=== PATIENT | male | born 1955 | race Caucasian/White ===

== ENCOUNTER → 2017-03-25 | Outpatient (CLI) | payer OTHER | END | disposition home or self-care (01) | LOC: RADUSWWP 14:07 | PROVIDERS: ATTEND Family Medicine | DX: I73.9 Peripheral vascular disease, unspecified (principal) | CPT/HCPCS: 93923 ==

== ENCOUNTER → 2018-05-26 | Outpatient (CLI) | payer OTHER ==
--- NOTE | 2018-05-26 14:00 | CTL ---
EXAMINATION TYPE: CT Low Dose Lung DATE OF EXAM ORDERED: 05/26/2018 HISTORY: . Lung cancer screening CT DLP: [address] CTDI: 1.76 mGy Automated exposure control for dose reduction was used. SCREENING VISIT: Subsequent COMPARISON: 05/06/2017 TECHNIQUE: Low dose computed tomography scan was performed through the chest at 1 mm thick sections a nd reconstructed images in the coronal plane at [address] DIAGNOSTIC QUALITY: Limited, but interpretable FINDINGS: LUNG NODULES: Present, detailed below: There is right apical thickening present previously and appears stable. Some irregular posterior lateral right apical pleural thickening is present. This was present previou sly and appears stable. LUNGS: COPD: Severity: Mild Fibrosis: Severity: None Lymph nodes: None Other findings: None RIGHT PLEURAL SPACE: Effusion: None Calcification: None Thickening: Mild Pneumothorax: None LEFT PLEURAL SPACE: Effusion: None Calcification: None Thickening: None Pneumothorax: None HEART: Heart Size: Normal Coronary calcification: Moderate Pericardial effusion: None OTHER FINDINGS: Upper abdomen: Unremarkable Bony thorax: Normal Supraclavicular region: Normal Other: Ascending thoracic aorta at the level the main pulmonary artery is 4.0 cm. The main pulmonary artery the bifurcation is 2.4 cm. IMPRESSION: Examination stable from prior study. Some mild right pleural thickening and right apical scarring is stable. FOLLOW UP CT CHEST RECOMMENDATION: Follow-up low-dose CT [address] LUNG RAD: Lung rad 2
== END | disposition home or self-care (01) ==
LOC: RADCTMAIN 12:48
PROVIDERS: ATTEND Family Medicine
DX: J92.9 Pleural plaque without asbestos (principal); J98.4 Other disorders of lung; Z87.891 Personal history of nicotine dependence

== ENCOUNTER → 2019-09-06 | Outpatient (CLI) | payer OTHER ==
--- NOTE | 2019-09-06 12:11 | CTL ---
EXAMINATION TYPE: CT Low Dose Lung DATE OF EXAM ORDERED: 09/06/2019 HISTORY: Personal history of tobacco abuse. Lung cancer screening CT DLP: [address] CTDI: 1.64 mGy Automated exposure control for dose reduction was used. SCREENING VISIT: Subsequent COMPARISON: 05/25/2018 and 05/06/2017 TECHNIQUE: Low dose computed tomography scan was performed through the chest at 1 mm thick sections a nd reconstructed images in the coronal plane at [address] DIAGNOSTIC QUALITY: Limited, but interpretable FINDINGS: LUNG NODULES: Present, detailed below: The previously seen irregular thickened right posterior lateral apical pleural thickening measures up to 1.0 cm in thickness on series 4 image 31 and is stable from the prior of 05/26/2018. Nodular apic al pleural thickening is also stable from the prior. 3 x 3 mm superior segment right lower lobe solid pulmonary nodules marked on series 5 image 134 and a ppears new from the prior. LUNGS: COPD: Severity: Mild to moderate Fibrosis: Severity: Mild biapical scarring Lymph nodes: No suspicious adenopathy Other findings: New atelectasis near the lateral right costophrenic angle. There is a lingular atelec tasis also seen is subsegmental. RIGHT PLEURAL SPACE: Effusion: None Calcification: None Thickening: None Pneumothorax: None LEFT PLEURAL SPACE: Effusion: None Calcification: None Thickening: None Pneumothorax: None HEART: Heart Size: Nonenlarged Coronary calcification: Left anterior descending coronary artery stent versus moderate calcifications . Mild calcifications of the circumflex coronary. Pericardial effusion: None OTHER FINDINGS: Upper abdomen: Gallbladder is surgically absent. Bony thorax: Mild multilevel degenerative change of the thoracic spine. Other: Stable upper limits of normal size of the ascending thoracic aorta measuring 4.0 cm. IMPRESSION: Solitary new 3 x 3 mm superior segment right lower lobe pulmonary nodule. Findings remain LUNG RADS 2 for which annual surveillance with low-dose CT is recommended. FOLLOW UP CT CHEST RECOMMENDATION: Follow-up low-dose CT [address] LUNG RAD: 2
== END | disposition home or self-care (01) ==
LOC: RADCTMAIN 11:05
PROVIDERS: ATTEND Internal Medicine Critical Care Medicine
DX: Z12.2 Encounter for screening for malignant neoplasm of respiratory organs (principal); R91.1 Solitary pulmonary nodule; F17.210 Nicotine dependence, cigarettes, uncomplicated

== ENCOUNTER → 2020-08-23 | Outpatient (CLI) | payer OTHER ==
--- NOTE | 2020-08-23 10:14 | MR ---
EXAMINATION TYPE: MR lumbar spine wo con DATE OF EXAM: 08/23/2020 COMPARISON: NONE HISTORY: Lower back pain into left leg down into left foot x 2 months TECHNIQUE: T1 and T2 axial and sagittal images of the lumbar spine are submitted. FINDINGS: There is no abnormal signal seen within the visualized spinal cord or paraspinal soft tissu es. At T12-L1 there is degenerative disc disease and hypertrophic spurring with mild central disc bulging but no focal herniation or canal stenosis. Neural foramina patent. Mild hypertrophic change of the f acets. At L1-2 there is disc space narrowing and degenerative disc disease with hypertrophic change of the f acets. Mild circumferential disc bulging with no canal stenosis, focal herniation or foraminal encroa chment. At L2-3 there is moderate degenerative disc disease with broad-based central disc bulging and more ad vanced hypertrophy ligamentum flavum and facet joints. There is a mild effacement of thecal sac and m ild bilateral foraminal encroachment with borderline central stenosis. At L3-4 there is moderate degenerative disc disease with more advanced facet arthropathy and hypertro phic change and ligamentum flavum. Mild broad-based disc bulging and effacement of thecal sac. Mild b ilateral foraminal encroachment. Borderline central stenosis. At L4-5 there is degenerative disc disease with mild circumferential disc bulging. Facet arthropathy and ligamentum flavum hypertrophy noted mild right foraminal and moderate left foraminal encroachment . At L5-S1 there is severe degenerative disc disease with grade 1 anterolisthesis and advanced facet ar thropathy. Findings suspicious for bilateral spondylolysis. Moderate to severe bilateral foraminal en croachment. No Canal stenosis. Mild broad-based disc bulging greater paracentrally to the right. There are heterogeneous marrow changes which are nonspecific. IMPRESSION: 1. Multilevel degenerative disc disease and hypertrophic facet arthropathy. Grade 1 anterolisthesis L 5 on S1 with moderate to severe bilateral foraminal encroachment. Bilateral spondylolysis suspected. 2. Multilevel disc bulging and hypertrophic changes with borderline central stenosis L2-3 and L3-4.
== END | disposition home or self-care (01) ==
LOC: RADMRIMAIN 08:22
PROVIDERS: ATTEND Family Medicine
DX: M48.061 Spinal stenosis, lumbar region without neurogenic claudication (principal); M51.16 Intervertebral disc disorders with radiculopathy, lumbar region; M43.17 Spondylolisthesis, lumbosacral region; M47.26 Other spondylosis with radiculopathy, lumbar region; M89.38 Hypertrophy of bone, other site
CPT/HCPCS: 72148

== ENCOUNTER → 2020-09-17 | Outpatient (CLI) | payer OTHER ==
[2020-09-17 08:29] VITALS: BP 131/76; PULSE 70; RESP 16; TEMP 97.7
--- NOTE | 2020-09-17 09:13 | P.HPIM ---
History of Present Illness H&P Date: 09/17/20 Chief Complaint: Lumbar back pain and pain radiating to left lower extremity Mr. Jain is a 65-year-old pleasant male came to the [facility] pain clinic for initial consultation for his lumbar back pain, and radiating to left lower extremity. Patient describes his pain is aching, throbbing, burning, and tingling sensation. His pain radiating to left lower extremity. He is using cane for walking support. He is working in a [employer] 10 hours a day 5-6 days a week. Patient rated pain 5-6 out of 10 in severity. Which may very her pain level from 5-9 out of 10 in severity. Pain increases with activities, and standing, walking, sitting, bending forward, and lifting. Pain decreases with no medications helping incomplete decreasing his pain Overall patient activities decreased secondary to pain. Pain medications helping to some extent. Because of the pain patient is feeling lack of sleep and interest and energy. Denied any bowel or bladder problems. Patient denies any adverse effects to medications. He is using cane as a walking aids for walking. Complaining depression secondary to pain but denied any [suicidal/homicidal tendency at this time. He is sleeping well with the help of pain medications. But denied any difficulty waking up from the sleep . There are no signs of narcotic diversion/misuse/overuse and no new-onset weakness, bowel/bladder incontinence, saddle anesthesia, or no red flag symptoms. Review of Systems All systems: negative Constitutional: Denies chills, Denies fever Eyes: denies blurred vision, denies pain Ears, nose, mouth and throat: Denies headache, Denies sore throat Cardiovascular: Denies chest pain, Denies shortness of breath Respiratory: Denies cough Gastrointestinal: Denies abdominal pain, Denies diarrhea, Denies nausea, Denies vomiting Musculoskeletal: Denies myalgias Musculoskeletal: left: as per HPI (Numbness, and tingling sensation) Integumentary: Denies pruritus, Denies rash Neurological: Denies numbness, Denies weakness Psychiatric: Denies anxiety, Denies depression Endocrine: Denies fatigue, Denies weight change Past Medical History Past Medical History: Coronary Artery Disease (CAD), COPD, Hyperlipidemia, Myocardial Infarction (PA), Osteoarthritis (OA) Additional Past Medical History / Comment(s): crohns, ulcertive colitis, chronic pancreatitis Last Myocardial Infarction Date:: 2016 History of Any Multi-Drug Resistant Organisms: None Reported Past Surgical History: Appendectomy, Cholecystectomy, Heart Catheterization With Stent, Joint Replacement, Orthopedic Surgery Additional Past Surgical History / Comment(s): one heart stent, left knee replacement, left knee sx on muscles, rt wrist X@ Past Anesthesia/Blood Transfusion Reactions: Previous Problems w/ Anesthesia Additional Past Anesthesia/Blood Transfusion Reaction / Comment(s): states had issue with anesthesia at dentist, and had to go to emergency room r/t trouble waking up Date of Last Stent Placement:: 2016 Smoking Status: Current every day smoker Medications and Allergies Home Medications Medication Instructions Recorded Confirmed Type Adalimumab [Humira] 40 mg 09/17/20 History Albuterol Sulfate [Proair Hfa] 8.5 mg DAILY 09/17/20 09/17/20 History Aspirin [Adult Low Dose Aspirin EC] 81 mg PO DAILY 09/17/20 09/17/20 History Atorvastatin [Lipitor] 40 mg PO DAILY 09/17/20 09/17/20 History Budesonide/Formoterol Fumarate 4.5 gm DAILY 09/17/20 09/17/20 History [Symbicort 80-4.5 Mcg Inhaler] Ergocalciferol (Vitamin D2) 50 mcg PO DAILY 09/17/20 09/17/20 History [Vitamin D2 (2000 Iu)] Gabapentin 600 mg PO TID 09/17/20 09/17/20 History HYDROcodone/APAP 10-325MG [Lorton 10 - 325 mg PO DAILY 09/17/20 09/17/20 History 10-325] Magnesium Oxide 400 mg PO DAILY #30 tablet 09/17/20 Rx Tamsulosin HCl [Flomax] 0.4 mg PO DAILY 09/17/20 09/17/20 History traMADol HCL [Ultram] 50 mg PO DAILY 09/17/20 09/17/20 History Allergies Allergy/AdvReac Type Severity Reaction Status Date / Time Sulfa (Sulfonamide Allergy Rash/Hives Verified 09/13/20 11:05 Antibiotics) Physical Exam - Constitutional General appearance: no acute distress - EENT Eyes: EOMI - Neck Neck: no lymphadenopathy - Gastrointestinal General gastrointestinal: organomegaly, soft, tenderness - Musculoskeletal Musculoskeletal: left sided weakness ( lumbar spine examination:) - Psychiatric Psychiatric: A&O x's 3, appropriate affect, intact judgment & insight Upper extremity: normal strength and range of motion. Lower extremity: Normal strength but decreased range of motion on left lower extremity secondary to pain. Lumbar paravertebral tenderness: Positive. Lumbar facet loading test: Positive. Straight leg raising TEST: Positive on left side. Provocative SI Joint Tests : Distraction test: Positive on left side Thigh thrust test: Positive on left side. Compression test: Positive on left side AMANDO/Wilder test: Positive on left side Results Results: MRI of the lumbar spine done on 08/23/2020 -reviewed and discussed with the patient Assessment and Plan Assessment: #1 lumbar spondylosis without myelopathy #2 lumbar spondylolisthesis L5 on S1 #3 lumbar [id number] #4 left side sacroiliac joint dysfunction #5 myofascial pain syndrome #6 peripheral vascular disease Plan: 1. Diagnoses, prognoses, and multiple treatment options including but not limited to physical therapy, interventional therapies, adjunct medical therapies, and surgical options were discussed with the patient and all questions were answered to the patients satisfaction. 2. Treatment plan agreement: Patient was discussed regarding the medication side effects, and complications associated medications. 3. The patient was counseled on importance of regular exercise in controlling chronic pain as well as in terms of overall well-being. Patient counseled regarding the importance of regular exercise, and minimizing the intake of carbohydrates, and process foods which may help in decreasing the inflammation, and helps overall well-being. Patient counseled regarding smoking association with chronic pain, worsening inflammation, effects of smoking on liver and medication metabolism. Patient encouraged to stop smoking, patient was given information regarding smoking cessation program. 4. Consultations: Continue physical therapy exercises at home 5. Investigations: MAPS- appropriate , and urine drug test- not done. 6. Diagnostic studies: None. 7. Interventional procedures: L5-S1 epidural steroid injection #1, and left glu teal trigger point injections. 8. Medications: #1 magnesium oxide 400 mg by mouth daily dispense #30. 9. Morphine milligram equivalent (MME) doses: 10 0 from the pain clinic. 10. Durable Medical Equipment (DME) : TENS units. 11. Disposition: Scheduled for follow-up in 4 weeks duration. I have spent greater than 30 minutes with this patient. Including but not limited to: [id number] time, on physical examination, electronic medical record review, counseling, and documentation.
== END ==
LOC: PNWHC3 07:48
DX: M47.26 Other spondylosis with radiculopathy, lumbar region (principal); M43.17 Spondylolisthesis, lumbosacral region; I25.10 Atherosclerotic heart disease of native coronary artery without angina pectoris; J44.9 Chronic obstructive pulmonary disease, unspecified; E78.5 Hyperlipidemia, unspecified; I25.2 Old myocardial infarction; M19.90 Unspecified osteoarthritis, unspecified site; F17.200 Nicotine dependence, unspecified, uncomplicated; M79.18 Myalgia, other site; I73.9 Peripheral vascular disease, unspecified; M53.3 Sacrococcygeal disorders, not elsewhere classified
CPT/HCPCS: 99211

== ENCOUNTER → 2020-09-24 | Outpatient (CLI) | payer OTHER ==
--- NOTE | 2020-09-24 22:33 | CTL ---
EXAMINATION TYPE: CT Low Dose Lung DATE OF EXAM ORDERED: 09/24/2020 HISTORY: Long-term tobacco use. Lung cancer screening CT DLP: [address] CTDI: 1.65 mGy Automated exposure control for dose reduction was used. SCREENING VISIT: Third study after baseline COMPARISON: Prior studies September 06, 2019 and older studies May 26, 2018 and May 06, 2017 TECHNIQUE: Low dose computed tomography scan was performed through the chest at 1 mm thick sections a nd reconstructed images in the coronal plane at [address] DIAGNOSTIC QUALITY: Limited, but interpretable FINDINGS: LUNG NODULES: Present, detailed below: Stable small scattered calcified nodules are granulomas reference largest measures 3 to 4 mm axial im age 33 anteriorly left upper lobe. No new greater than 4 mm noncalcified pulmonary nodules. Prior visualized 3 mm superior right lower l obe nodule medially is not clearly seen on today's study LUNGS: COPD: Severity: Mild to Moderate Fibrosis: Severity: Mild To moderate biapical Lymph nodes: No greater than 1 cm noncalcified Other findings: Ascending aorta measures up to 3.9 cm in size. RIGHT PLEURAL SPACE: Effusion: None Calcification: None Thickening: None Pneumothorax: None LEFT PLEURAL SPACE: Effusion: None Calcification: None Thickening: None Pneumothorax: None HEART: Heart Size: Normal Coronary calcification: Probable stent proximal LAD correlate clinically. Pericardial effusion: None. OTHER FINDINGS: Upper abdomen: Cholecystectomy clips redemonstrated. Bony thorax: Mild to moderate multilevel spurring. Supraclavicular region: None. Other: None. IMPRESSION: No new or enlarging nodules. CT LUNG RAD AND CT CHEST RECOMMENDATION: Lung-Rad 2 Benign Appearance or Behavior: Continue annual sc reening with LDCT in 12 months. S Modifier (other clinically significant findings): None
== END | disposition home or self-care (01) ==
LOC: RADCTMAIN 16:12 → EEVIPCON 16:20
PROVIDERS: ATTEND Internal Medicine Critical Care Medicine
DX: Z12.2 Encounter for screening for malignant neoplasm of respiratory organs (principal); F17.210 Nicotine dependence, cigarettes, uncomplicated
CPT/HCPCS: 71271

== ENCOUNTER 2020-09-25 13:20 | Day surgery (SDC) | payer OTHER ==
[2020-09-21 15:59] VITALS: BMI 21.5
[~2020-09-25 13:20] MED LIST: LACTATED RINGERS 1,000 ML IV SCH
[2020-09-25 13:45] VITALS: RESP 16; TEMP 98.9
[2020-09-25] MEDS ORDERED: MIDAZOLAM 2 MG/2 ML VIAL ONE (13:45)
[2020-09-25] MEDS ORDERED: ROPIVACAINE 5MG/ML 20ML VIAL ONE (13:45)
[2020-09-25] MEDS ORDERED: IOPAMIDOL M200 10 ML VIAL ONE (13:45)
[2020-09-25] MEDS ORDERED: methylPREDNISolone ACETATE 40 MG/ML 1 ML VIAL ONE (13:45)
[2020-09-25] MEDS ORDERED: fentaNYL (PF) 50 MCG/ML 2 ML AMP ONE (13:45)
[2020-09-25] MEDS ORDERED: IV FLUID CONTINUATION 1,000 ML IV ONE ×2 (14:09)
[2020-09-25 14:31] VITALS: BP 109/70; PULSE 57
--- NOTE | 2020-09-25 15:53 | FL ---
EXAMINATION TYPE: FL guided pain mgmt statistic DATE OF EXAM: 09/25/2020 CLINICAL HISTORY: Low back pain. TECHNIQUE: Fluoroscopy. COMPARISON: None. FINDINGS: Fluoroscopic guidance was provided during pain relief procedure performed by Dr. Kam . A total of 7 seconds of fluoroscopic time was utilized during the procedure and 1 spot intraoperat sukhdeep image is acquired. Single image acquired shows needle localization at lower lumbar spine. IMPRESSION: As Above.
== END 2020-09-25 14:41 | disposition home or self-care (01) ==
LOC: ORPAIN 13:20
PROVIDERS: ATTEND Specialist
DX: M47.26 Other spondylosis with radiculopathy, lumbar region (principal); M79.18 Myalgia, other site; M51.16 Intervertebral disc disorders with radiculopathy, lumbar region; Z88.2 Allergy status to sulfonamides; Z79.82 Long term (current) use of aspirin
CPT/HCPCS: 20552; 62323; J2250; J1030; J3010; Q9966; J2795; 99152

== ENCOUNTER → 2020-10-01 | Outpatient (CLI) | payer OTHER ==
--- NOTE | 2020-09-25 14:07 | P.PCN ---
Date of Procedure: 09/25/20 Procedure(s) Performed: PREOPERATIVE DIAGNOSIS: 1- Lumbar radiculopathy. 2-Lumbar spondylosis with Facet arthropathy without myelopathy. 3-myofascial pain syndrome left gluteal area. POSTOPERATIVE DIAGNOSIS: Same as preop diagnosis. PROCEDURE 1. Lumbar epidural steroid injection under fluoroscopic guidance at the L5-S1 level. (Fluoroscopy imaging was available in radiology department) 2. Lumbar epidurogram. 3. Trigger points injection left gluteal muscles .( 2 points ) ANESTHESIA: Local with 1% lidocaine 3 ml and , moderate sedation with intravenous Versed 2 mg ,and fentanyle 50 Mcg EBL: Minimal PROCEDURE INDICATION: The patient with low back pain and radiculitis symptoms unresponsive to conservative treatment. Fluoroscopy was used to optimize visualization of the needle placement and to maximize safety. PROCEDURE DESCRIPTION / TECHNIQUE: The patient was seen and identified in the preoperative area. Risks, benefits, complications including but not limited to infections ,bleeding ,allergic reaction to the medications ,nerve damage and not complete pain releife , and alternatives were discussed with the patient. The patient agreed to proceed with the procedure and signed the consent. IV was started, and vital signs were stable. Patient was taken to the OR and time out was completed. The patient was placed in the prone position on procedure table and a pillow was placed under the abdomen to reduce lumbar lordosis. The lumbosacral area was prepped and draped in the usual sterile fashion.ere closely monitored during the procedure. Conscious sedation was used during the procedure to decrease patients anxiety. Vital signs was monitered during the entire procedure. Using anterior-posterior fluoroscopy, the L5-S1 interlaminar space was identified and the skin over this site was marked and then infiltrated with 1% lidocaine subcutaneously. Subsequently, a 20-gauge Tuohy epidural needle was inserted and advanced toward the epidural space using the ``Loss of resistance technique and guided by AP and lateral fluoroscopy. The correct needle position in the epidural space was verified with the injection of 2 mL of the water soluble contrast dye Isovue 200 contrast and observing an excellent epidurogram with the epidural spread of the dye, after negative aspiration for blood and CSF and in the absence of paresthesias. Again after negative aspiration, a 6 ml mixture containing 80 mg of Depo-medrol , and 2 ml of preservative free Normal Saline, and 2 ml of preservative free lidocaine 1% solution was injected and a washout of epidurogram was seen. Needle was withdrawn intact, skin was cleansed. Trigger point injection done under sterile technique, 2 trigger point identified in the left gluteal muscles, each one of them injected with Ropivacaine 0.5% 3 ml , using 25-gauge needle injection done after negative aspiration and there was no paresthesia during the injections, patient tolerated the procedure well without any complications COMPLICATIONS: None DISPOSITION / PLANS: The patient was placed in a supine position and transferred to the recovery area in a stable condition for observation. There was no evidence of lower extremity motor or sensory deficit after the procedure. Patient was discharged from the recovery room after meeting discharge criteria. Home discharge instructions were given to the patient by the staff. The patient was reexamined prior to discharge. The patient will schedule a follow up in the clinic in 2-4 weeks.
--- NOTE | 2020-10-02 08:55 | CT ---
EXAMINATION TYPE: CT lumbar spine wo con DATE OF EXAM: 10/01/2020 COMPARISON: None HISTORY: Low back pain CT DLP: 462.5 mGycm CONTRAST: None TECHNIQUE: CT of the lumbar spine is performed on a spiral scan at 3 mm thick sections. Reconstructed images are performed in the coronal and sagittal planes. FINDINGS: Spondylolysis of L5 is present. There is a grade 1 spondylolisthesis of L5 anteriorly on S1 . Disc phenomenon is present L5-S1. T12-L1: No focal disc herniation or significant disc bulge is evident. No spinal canal stenosis or neural foraminal stenosis is present. L1-L2: No focal disc herniation or significant disc bulge is evident. No spinal canal stenosis or n eural foraminal stenosis is present L2-L3: Disc space narrowing is present. Mild disc bulges anterior thecal sac flattening. No AP spinal canal stenosis is present. Mild foraminal narrowing is present greater on the right. L3-L4: Broad-based disc bulge is present with anterior thecal sac flattening. No AP spinal canal sten osis is present. Neural foramen are patent. L4-L5: Broad-based disc bulge is mild anterior thecal sac flattening. No spinal canal stenosis presen t. Moderate bilateral foraminal narrowing greater on the left is present. L5-S1: Disc uncovering is present with mild anterior thecal sac compression. No AP spinal canal steno sis present. Severe bilateral foraminal narrowing appears to be present. IMPRESSION: 1. Severe foraminal narrowing L5-S1 bilaterally secondary to disc bulging into the foramen. 2. Some milder foraminal narrowing is present L2-3 L4-5. 3. Disc bulging without herniation L2-3 through L5-S1
--- NOTE | 2020-10-02 12:58 | XR ---
Lumbar spine HISTORY: Lumbar stenosis 3 views the lumbar spine correlated to CT scan same date There is multilevel spondylosis. Lumbar vertebral bodies show preserved height, bone mineralization. There is anterior listhesis grade 1 L5-S1, bilateral spondylolysis at L5 with associated facet arthro vitor changes. Vacuum phenomenon present at L5-S1. Loss of disc height also present L3-4 and L4-5, an d also at L2-3, and L1-2. IMPRESSION: Degenerative disc disease, spondylolysis L5, anterolisthesis L5-S1. Facet arthropathy.
== END | disposition home or self-care (01) ==
LOC: RADCTMAIN 17:27
PROVIDERS: ATTEND Neurological Surgery
DX: M43.16 Spondylolisthesis, lumbar region (principal); M48.061 Spinal stenosis, lumbar region without neurogenic claudication; M51.36 Other intervertebral disc degeneration, lumbar region; M47.816 Spondylosis without myelopathy or radiculopathy, lumbar region; M51.26 Other intervertebral disc displacement, lumbar region; M99.73 Connective tissue and disc stenosis of intervertebral foramina of lumbar region
CPT/HCPCS: 72100; 72131

== ENCOUNTER → 2020-10-30 | Outpatient (CLI) | payer OTHER ==
--- NOTE | 2020-10-30 14:05 | XR ---
EXAMINATION TYPE: XR chest 2V DATE OF EXAM: 10/30/2020 COMPARISON: 01/09/2012 TECHNIQUE: PA and lateral views submitted. HISTORY: Preop FINDINGS: The lungs are clear and there is no pneumothorax, pleural effusion, or focal pneumonia. Biapical ple ural thickening. Hyperinflation noted. Heart size normal. Hypertrophic and degenerative changes of th e spine. Prominence the pulmonary arteries can be associated with pulmonary arterial hypertension. IMPRESSION: 1. Diffuse COPD.
[2020-10-30 14:11] LABS: Appearance,Urine Clear (Clear); Bilirubin,Urine Negative (Negative); Blood,Urine Negative (Negative); Color,Urine Colorless; Glucose,Urine (UA) Negative (Negative); Ketones,Urine Negative (Negative); Leukocyte Esterase,Urine Negative (Negative); Nitrite,Urine Negative (Negative); Protein,Urine Negative (Negative); Specific Gravity,Urine 1.003 (1.001-1.035); Urobilinogen,Urine <2.0 mg/dL (<2.0)
[2020-10-30 18:31] LABS: Basophils # (A) 0.05 X 10*3/uL (0.00-0.10); Basophils % (A) 0.7 %; Eosinophils # (A) 0.08 X 10*3/uL (0.04-0.35); Eosinophils % (A) 1.2 %; HGB 14.7 g/dL (13.0-17.0); Lymphocytes # (A) 2.34 X 10*3/uL (0.90-5.00); MCH 30.4 pg (27.0-32.0); MCHC 33.4 g/dL (32.0-37.0); MCV 90.9 fL (80.0-97.0); Mean Platelet Volume 9.9 fL (9.5-12.2); Monocytes # (A) 0.64 X 10*3/uL (0.20-1.00); Monocytes % (A) 9.3 %; Neutrophils # (A) 3.76 X 10*3/uL (1.80-7.70); Neutrophils % (A) 54.5 %; Platelet Count 207 X 10*3/uL (140-440); RBC 4.84 X 10*6/uL (4.40-5.60); RDW 12.8 % (11.5-14.5); WBC 6.89 X 10*3/uL (4.50-10.00)
[2020-10-31 00:23] LABS: Partial Thromboplastin Time 29.9 sec (23.5-31.0); Prothrombin Time 10.9 sec (9.9-11.9)
[2020-10-31 13:38] LABS: African American GFR (CKD) 109.4 (60.0-200.0); Albumin 4.6 g/dL (3.80-4.90); Albumin/Globulin Ratio 2.3 (1.60-3.17); Anion Gap 12.7 mmol/L (4.00-12.00); BUN/Creat Ratio 13.75 Ratio (12.00-20.00); Calcium 9.6 mg/dL (8.7-10.3); Carbon Dioxide 21.3 mmol/L (21.6-31.8); Non-African American GFR(CKD) 94.4 (60.0-200.0); Potassium 4.2 mmol/L (3.5-5.5); Total Bilirubin 0.3 mg/dL (0.2-1.2); Total Protein 6.6 g/dL (6.2-8.2)
== END | disposition home or self-care (01) ==
LOC: LABWHC1 13:21
PROVIDERS: ATTEND Neurological Surgery
DX: Z01.818 Encounter for other preprocedural examination (principal); J44.9 Chronic obstructive pulmonary disease, unspecified; M48.00 Spinal stenosis, site unspecified
CPT/HCPCS: 36415; 71046; 80053; 81003; 85025; 85610; 85730; 87070; 87086

== ENCOUNTER 2022-02-12 13:29 | Emergency (ER) | payer MEDICARE, BC ==
[2022-02-12 13:58] VITALS: TEMP 98.5
[2022-02-12 14:33] LABS: Basophils # (A) 0.1 k/uL (0-0.2); Basophils % (A) 1 %; Eosinophils # (A) 0.1 k/uL (0-0.7); Eosinophils % (A) 1 %; HCT 50.5 % (39.0-53.0); HGB 16.7 gm/dL (13.0-17.5); Lymphocytes # (A) 2.3 k/uL (1.0-4.8); Lymphocytes % (A) 28 %; MCH 30.1 pg (25.0-35.0); MCHC 33.1 g/dL (31.0-37.0); Monocytes # (A) 0.5 k/uL (0-1.0); Monocytes % (A) 6 %; Neutrophils # (A) 5.1 k/uL (1.3-7.7); Neutrophils % (A) 63 %; Platelet Count 181 k/uL (150-450); RBC 5.55 m/uL (4.30-5.90); RDW 12.8 % (11.5-15.5); WBC 8.1 k/uL (3.8-10.6)
[2022-02-12 14:40] LABS: ALT 41 U/L (4-49); AST 39 U/L (17-59); African American GFR (CKD) >90 (>60 ml/min/1.73 sqM); Albumin 4.3 g/dL (3.5-5.0); Alkaline Phosphatase 72 U/L (38-126); Anion Gap 12 mmol/L; Blood Urea Nitrogen 14 mg/dL (9-20); Calcium 9.1 mg/dL (8.4-10.2); Carbon Dioxide 23 mmol/L (22-30); Chloride 106 mmol/L (98-107); Glucose 96 mg/dL (74-99); Non-African American GFR(CKD) >90 (>60 ml/min/1.73 sqM); Potassium 4.3 mmol/L (3.5-5.1); Prothrombin Time 10.9 sec (9.0-12.0); Sodium 141 mmol/L (137-145); Total Bilirubin 0.5 mg/dL (0.2-1.3); Total Protein 7.1 g/dL (6.3-8.2)
--- NOTE | 2022-02-12 17:15 | XR ---
EXAMINATION TYPE: XR chest 1V portable DATE OF EXAM: 02/12/2022 4:50 PM COMPARISON: Chest radiographs from 10/30/2020 TECHNIQUE: XR chest 1V portable Frontal view of the chest. CLINICAL INDICATION:Male, 66 years old with history of chest pain; FINDINGS: Lungs/Pleura: There is flattening of the diaphragm with increased lucency of the lungs. No evidence o f pneumothorax, pleural effusion or focal consolidation. Pulmonary vascularity: Unremarkable. Heart/mediastinum: Cardiomediastinal silhouette is unremarkable. Musculoskeletal: No acute osseous pathology. IMPRESSION: 1. No acute cardiopulmonary disease process. 2. COPD changes.
[2022-02-12] MEDS ORDERED: IPRATROPIUM-ALBUTEROL 3 ML NEB INHALATION STA (17:18)
[2022-02-12] MEDS ORDERED: DEXAMETHASONE SOD PHOSPHATE 10 MG/ML 1 ML VIAL IV STA (17:19)
--- NOTE | 2022-02-12 17:23 | ED ---
General Adult HPI - General Chief complaint: Shortness of Breath Stated complaint: hurts to breath Time Seen by Provider: 02/12/22 16:38 Source: patient Mode of arrival: ambulatory Limitations: no limitations - History of Present Illness Initial comments: Dictation was produced using [employer] dictation software. please excuse any grammatical, word or spelling errors. Chief Complaint: 66-year-old male presents to the emergency Department for pleuritic chest pain History of Present Illness: Patient's 66-year-old male he was redirected from [facility] urgent care for insertions of pulmonary embolism. Patient has history of COPD. For the last several days as been having pleuritic chest pain. States that since the right. He states that it's mildly sharp. Nonradiating. Not constant. Patient has been having some coughing. Patient has history of shortness of breath secondary to COPD. She did report fever constitutional symp toms that resolved on its own. Patient states that he's been having respiratory symptoms for approximately 2 weeks. No obvious sick contacts. The ROS documented in this emergency department record has been reviewed and confirmed by me. Those systems with pertinent positive or negative responses have been documented in the HPI. All other systems are other negative and/or noncontributory. PHYSICAL EXAM: General Impression: Alert and oriented x3, not in acute distress HEENT: Normocephalic atraumatic, extra-ocular movements intact, pupils equal and reactive to light bilaterally, mucous membranes moist. Cardiovascular: Heart regular rate and rhythm Chest: Able to complete full sentences, no retractions, no tachypnea, mild diffuse lung wheezing Abdomen: abdomen soft, non-tender, non-distended, no organomegaly Musculoskeletal: Pulses present and equal in all extremities, no peripheral e cuco Motor: no focal deficits noted Neurological: CN II-XII grossly intact, no focal motor or sensory deficits noted Skin: Intact with no visualized rashes Psych: Normal affect and mood ED course: 66-year-old male presents to the emergency department for shortness of breath and chest pain. He was told at the urgent care where he came from that there is concern that patient may be suffering from pulmonary embolism. Patient is a history of PE. Denies any lower extremity symptoms. Vital signs upon arrival are within acceptable limits. Laboratory evaluation obtained. CBC [place]. Coag panel is negative. D-dimer is negative. Metabolic panel was within acceptable limits. Patient is COVID-19 positive. Chest x-ray shows no acute processes. Patient given Decadron and breathing treatment. Patient reevaluated at bedside at 6:40 found to be in stable medical condition. Patient not a candidate for antiviral treatment at this time given that his symptomatology has been more than 5 days. Patient feels better after breathing treatment and Decadron.. Patient advised follow-up with primary care doctor. - Related Data Home Medications Medication Instructions Recorded Confirmed Adalimumab [Humira] 40 mg SQ Q14D 09/17/20 09/21/20 Albuterol Sulfate [Proair Hfa] 8.5 mg INHALATION DAILY 09/17/20 09/21/20 Aspirin [Adult Low Dose Aspirin EC] 81 mg PO DAILY 09/17/20 09/21/20 Atorvastatin [Lipitor] 40 mg PO DAILY 09/17/20 09/21/20 Budesonide/Formoterol Fumarate 4.5 gm INHALATION DAILY 09/17/20 09/21/20 [Symbicort 80-4.5 Mcg Inhaler] Ergocalciferol (Vitamin D2) 50 mcg PO DAILY 09/17/20 09/21/20 [Vitamin D2 (2000 Iu)] Gabapentin 600 mg PO TID 09/17/20 09/21/20 HYDROcodone/APAP 10-325MG [[place] 10 - 325 mg PO DAILY 09/17/20 09/21/20 10-325] Tamsulosin HCl [Flomax] 0.4 mg PO DAILY 09/17/20 09/21/20 traMADol HCL [Ultram] 50 mg PO DAILY 09/17/20 09/21/20 Previous Rx's Medication Instructions Recorded Magnesium Oxide 400 mg PO DAILY #30 tablet 09/17/20 Allergies Allergy/AdvReac Type Severity Reaction Status Date / Time Sulfa (Sulfonamide Allergy Rash/Hives Verified 02/12/22 13:58 Antibiotics) Review of Systems ROS Statement: Those systems with pertinent positive or pertinent negative responses have been documented in the HPI. ROS Other: All systems not noted in ROS Statement are negative. Past Medical History Past Medical History: Coronary Artery Disease (CAD), COPD, Hyperlipidemia, Myocardial Infarction (DE), Osteoarthritis (OA) Additional Past Medical History / Comment(s): crohns, ulcertive colitis, chronic pancreatitis Last Myocardial Infarction Date:: 2016 History of Any Multi-Drug Resistant Organisms: None Reported Past Surgical History: Appendectomy, Cholecystectomy, Heart Catheterization With Stent, Joint Replacement, Orthopedic Surgery Additional Past Surgical History / Comment(s): one heart stent, left knee replacement, left knee sx on muscles, rt wrist X@ Past Anesthesia/Blood Transfusion Reactions: Previous Problems w/ Anesthesia Additional Past Anesthesia/Blood Transfusion Reaction / Comment(s): states had issue with anesthesia at dentist, and had to go to emergency room r/t trouble waking up Date of Last Stent Placement:: 2016 Past Psychological History: Depression Smoking Status: Current every day smoker Past Alcohol Use History: Occasional Past Drug Use History: None Reported General Exam Limitations: no limitations Course Vital Signs 02/12/22 02/12/22 02/12/22 13:56 16:42 17:42 Temperature 98.5 F Pulse Rate 60 60 56 L Respiratory 22 18 14 Rate Blood Pressure 109/78 127/83 O2 Sat by Pulse 94 L 97 Oximetry 02/12/22 17:51 Temperature Pulse Rate 56 L Respiratory 14 Rate Blood Pressure O2 Sat by Pulse Oximetry Medical Decision Making - Lab Data Result diagrams: 02/12/22 14:13 02/12/22 14:13 Lab Results 02/12/22 02/12/22 02/12/22 Range/Units 14:00 14:13 14:13 WBC 8.1 (3.8-10.6) k/uL RBC 5.55 (4.30-5.90) m/uL Hgb 16.7 (13.0-17.5) gm/dL Hct 50.5 (39.0-53.0) % MCV 91.0 (80.0-100.0) fL MCH 30.1 (25.0-35.0) pg MCHC 33.1 (31.0-37.0) g/dL RDW 12.8 (11.5-15.5) % Plt Count 181 (150-450) k/uL MPV 8.0 Neutrophils % 63 % Lymphocytes % 28 % Monocytes % 6 % Eosinophils % 1 % Basophils % 1 % Neutrophils # 5.1 (1.3-7.7) k/uL Lymphocytes # 2.3 (1.0-4.8) k/uL Monocytes # 0.5 (0-1.0) k/uL Eosinophils # 0.1 (0-0.7) k/uL Basophils # 0.1 (0-0.2) k/uL PT 10.9 (9.0-12.0) sec INR 1.0 (<1.2) APTT 25.0 (22.0-30.0) sec D-Dimer 0.44 (<0.60) mg/L FEU Sodium (137-145) mmol/L Potassium (3.5-5.1) mmol/L Chloride (98-107) mmol/L Carbon Dioxide (22-30) mmol/L Anion Gap mmol/L BUN (9-20) mg/dL Creatinine (0.66-1.25) mg/dL Est GFR (CKD-EPI)AfAm (>60 ml/min/1.73 sqM) Est GFR (CKD-EPI)NonAf (>60 ml/min/1.73 sqM) Glucose (74-99) mg/dL Calcium (8.4-10.2) mg/dL Total Bilirubin (0.2-1.3) mg/dL AST (17-59) U/L ALT (4-49) U/L Alkaline Phosphatase (38-126) U/L Troponin I (0.000-0.034) ng/mL NT-Pro-B Natriuret Pep 77 pg/mL Total Protein (6.3-8.2) g/dL Albumin (3.5-5.0) g/dL Influenza Type A (PCR) (Not Detectd) Influenza Type B (PCR) (Not Detectd) RSV (PCR) (Not Detectd) SARS-CoV-2 (PCR) (Not Detectd) 02/12/22 02/12/22 02/12/22 Range/Units 14:13 14:13 17:35 WBC (3.8-10.6) k/uL RBC (4.30-5.90) m/uL Hgb (13.0-17.5) gm/dL Hct (39.0-53.0) % MCV (80.0-100.0) fL MCH (25.0-35.0) pg MCHC (31.0-37.0) g/dL RDW (11.5-15.5) % Plt Count (150-450) k/uL MPV Neutrophils % % Lymphocytes % % Monocytes % % Eosinophils % % Basophils % % Neutrophils # (1.3-7.7) k/uL Lymphocytes # (1.0-4.8) k/uL Monocytes # (0-1.0) k/uL Eosinophils # (0-0.7) k/uL Basophils # (0-0.2) k/uL PT (9.0-12.0) sec INR (<1.2) APTT (22.0-30.0) sec D-Dimer (<0.60) mg/L FEU Sodium 141 (137-145) mmol/L Potassium 4.3 (3.5-5.1) mmol/L Chloride 106 (98-107) mmol/L Carbon Dioxide 23 (22-30) mmol/L Anion Gap 12 mmol/L BUN 14 (9-20) mg/dL Creatinine 0.83 (0.66-1.25) mg/dL Est GFR (CKD-EPI)AfAm >90 (>60 ml/min/1.73 sqM) Est GFR (CKD-EPI)NonAf >90 (>60 ml/min/1.73 sqM) Glucose 96 (74-99) mg/dL Calcium 9.1 (8.4-10.2) mg/dL Total Bilirubin 0.5 (0.2-1.3) mg/dL AST 39 (17-59) U/L ALT 41 (4-49) U/L Alkaline Phosphatase 72 (38-126) U/L Troponin I <0.012 (0.000-0.034) ng/mL NT-Pro-B Natriuret Pep pg/mL Total Protein 7.1 (6.3-8.2) g/dL Albumin 4.3 (3.5-5.0) g/dL Influenza Type A (PCR) Not Detected (Not Detectd) Influenza Type B (PCR) Not Detected (Not Detectd) RSV (PCR) Not Detected (Not Detectd) SARS-CoV-2 (PCR) Detected A (Not Detectd) Disposition Clinical Impression: Coronavirus infection Disposition: HOME SELF-CARE Condition: Good Instructions (If sedation given, give patient instructions): Coronavirus Disease 2019 (COVID-19) Is patient prescribed a controlled substance at d/c from ED?: No Referrals: Marck Britt MD [Primary Care Provider] - 1-2 days Time of Disposition: 18:43
[2022-02-12 19:02] VITALS: BP 100/68; PULSE 67; RESP 18
== END 2022-02-12 19:02 | disposition home or self-care (01) ==
LOC: EC 13:29
DX: U07.1 COVID-19 (principal); J44.9 Chronic obstructive pulmonary disease, unspecified; F17.200 Nicotine dependence, unspecified, uncomplicated; I25.2 Old myocardial infarction; I25.10 Atherosclerotic heart disease of native coronary artery without angina pectoris; E78.5 Hyperlipidemia, unspecified; M19.90 Unspecified osteoarthritis, unspecified site; Z88.2 Allergy status to sulfonamides; Z79.899 Other long term (current) drug therapy; Z79.51 Long term (current) use of inhaled steroids; Z79.82 Long term (current) use of aspirin
CPT/HCPCS: 36415; 94640; 93005; 85379; 83880; 80053; 84484; 85025; 85610; 85730; 87636; 71045; 99285; 96374; J1100

== ENCOUNTER 2022-08-01 11:51 | Day surgery (SDC) | payer MEDICARE, BC ==
[~2022-08-01 11:51] MED LIST changes: +LIDOCAINE 1% (10MG/ML) FOR IV START INTRADERMA PRN
[2022-08-01 13:33] VITALS: TEMP 97.3
[2022-08-01] MEDS ORDERED: PROPOFOL 10 MG/ML 20 ML VIAL IV ONE (14:29)
--- NOTE | 2022-08-01 14:46 | P.PCN ---
Date of Procedure: 08/01/22 Procedure(s) Performed: BRIEF HISTORY: Patient is a 66-year-old pleasant male scheduled for an elective colonoscopy as a part of long-standing history of Crohn's colitis diagnosed in 2010. Presently maintained on Humira injections every 2 weeks and remains in clinical remission. PROCEDURE PERFORMED: Colonoscopy with random biopsy. PREOPERATIVE DIAGNOSIS: Lungs any history of Crohn's colitis diagnosed in 1999 and. IV sedation per Anesthesia. PROCEDURE: After informed consent was obtained, the patient, was brought into the endoscopy unit. IV sedation was administered by Anesthesia under continuous monitoring. Digital rectal examination was normal. Initially the Olympus CF-160 flexible video colonoscope was then inserted in the rectum, gradually advanced into the cecum without any difficulty. Careful examination was performed as the scope was gradually being withdrawn. Ileocecal valve and the appendiceal orifice were visualized and appeared normal. Prep was excellent. Mucosa of the cecum, ascending colon, transverse colon, descending colon, sigmoid colon, and rectum appeared normal. Some scarring of the mucosa noted in the left colon. No active colitis seen. Random biopsies were done from the cecum to rectum at every 10 cm intervals to rule out dysplasia. Retroflexion was performed in the rectum and no lesions were seen. The patient tolerated the procedure well. IMPRESSION: Normal-appearing colon from rectum to cecum with no evidence of active colitis or colorectal neoplasia. . RECOMMENDATIONS: Findings of this examination were discussed with the patient as well as his family. He was advised to follow with the biopsies as. If the biopsies do not show any evidence of dysplasia he can have a repeat colonoscopy in 2 years..
[2022-08-01 15:14] VITALS: BP 114/76; PULSE 85; RESP 16
== END 2022-08-01 15:36 | disposition home or self-care (01) ==
LOC: ORWHC2ENDO 11:51 → EEVIPCON 15:15 → ORWHC2ENDO 15:36
PROVIDERS: ATTEND Internal Medicine Gastroenterology
DX: K50.10 Crohn's disease of large intestine without complications (principal); Z79.82 Long term (current) use of aspirin; Z79.899 Other long term (current) drug therapy; Z88.2 Allergy status to sulfonamides; I25.2 Old myocardial infarction; I25.10 Atherosclerotic heart disease of native coronary artery without angina pectoris; J44.9 Chronic obstructive pulmonary disease, unspecified; I63.9 Cerebral infarction, unspecified; Z95.5 Presence of coronary angioplasty implant and graft; Z79.51 Long term (current) use of inhaled steroids
CPT/HCPCS: 45380; 88305; J2704

== ENCOUNTER → 2023-02-02 | Outpatient (CLI) | payer MEDICARE, BC | END | disposition home or self-care (01) | LOC: LABWHC1 15:20 | PROVIDERS: ATTEND Urology | DX: R97.20 Elevated prostate specific antigen [PSA] (principal) | CPT/HCPCS: 36415; 84153 ==

== ENCOUNTER → 2023-05-29 | Outpatient (CLI) | payer MEDICARE, BC ==
--- NOTE | 2023-05-29 15:38 | CTL ---
EXAMINATION TYPE: CT Low Dose Lung DATE OF EXAM ORDERED: 05/29/2023 HISTORY:. Lung cancer screening CT DLP: 90.[address] CTDI: 2.0 mGy Automated exposure control for dose reduction was used. COMPARISON: 09/24/2020 TECHNIQUE: Low dose computed tomography scan was performed through the chest at 1 mm thick sections a nd reconstructed images in multiple planes at 1 mm and [address] DIAGNOSTIC QUALITY: Satisfactory Findings: There are mild emphysematous changes. There is no abnormal airspace/consolidative density or abnormal interstitial density. There is no pleural effusion, pleural thickening or pneumothorax. The tiny left upper lobe calcified granulomas again seen. No new or suspicious lung nodule is seen. The great vessels chest are normal is no mediastinal, hilar or axillary adenopathy. Limited scanning through the upper abdomen reveals no gross abnormality. No focal osseous lesion is seen. IMPRESSION: 1. Lung RADS category 2 benign. Continue routine screening at yearly intervals. 2. Mild emphysematous changes. 3. No acute cardiopulmonary disease.
== END | disposition home or self-care (01) ==
LOC: RADCTMAIN 14:51
PROVIDERS: ATTEND Internal Medicine Critical Care Medicine
DX: Z12.2 Encounter for screening for malignant neoplasm of respiratory organs (principal); F17.210 Nicotine dependence, cigarettes, uncomplicated; J43.9 Emphysema, unspecified; R91.8 Other nonspecific abnormal finding of lung field
CPT/HCPCS: 71271

== ENCOUNTER 2024-07-12 07:41 | Day surgery (SDC) | payer MEDICARE, BC ==
[2024-07-12] MEDS: IV FLUID CONTINUATION 1,000 ML IV ONE (08:20)
[2024-07-12] MEDS ORDERED: PROPOFOL 10 MG/ML 20 ML VIAL IV ONE (09:10)
[2024-07-12] MEDS ORDERED: LIDOCAINE 1% INJ 10MG/ML (20 ML MDV) ONE (09:10)
--- NOTE | 2024-07-12 09:26 | P.PCN ---
Date of Procedure: 07/12/24 Procedure(s) Performed: BRIEF HISTORY: Patient is a 68-year-old pleasant white male scheduled for an elective colonoscopy as a part of screening for colon cancer/history of Crohn's colitis diagnosed in 2010. He is in clinical remission. Has been off the Humira for 3 months but remains in clinical remission. PROCEDURE PERFORMED: Colonoscopy with random biopsies. PREOPERATIVE DIAGNOSIS: History of Crohn's colitis. IV sedation per Anesthesia. PROCEDURE: After informed consent was obtained, the patient, was brought into the endoscopy unit. IV sedation was administered by Anesthesia under continuous monitoring. Digital rectal examination was normal. Initially the Olympus CF-160 flexible video colonoscope was then inserted in the rectum, gradually advanced into the cecum without any difficulty. Careful examination was performed as the scope was gradually being withdrawn. Ileocecal valve and the appendiceal orifice were visualized and appeared normal. Prep was excellent. Mucosa of the cecum, ascending colon, transverse colon, descending colon, sigmoid colon, and rectum appeared normal. Biopsies were done from cecum to rectum at every 10 cm intervals to 70 cm retroflexion was performed in the rectum and no lesions were seen. The patient tolerated the procedure well. IMPRESSION: Normal-appearing colon from rectum to cecum with no evidence of active colitis or colorectal neoplasia. RECOMMENDATIONS: Findings of this examination were discussed with the patient as well as his family. He was advised to follow-up with the biopsy results. If the biopsy does not show any evidence of dysplasia he can have repeat colonoscopy in 2 years. At this time we will hold off on Humira injections and follow-up in the office in 6 months..
[2024-07-12 09:34] VITALS: RESP 16
[2024-07-12 09:59] VITALS: BP 122/73; PULSE 69
== END 2024-07-12 10:13 | disposition home or self-care (01) ==
LOC: ORWHC2ENDO 07:41
PROVIDERS: ATTEND Internal Medicine Gastroenterology
DX: K52.9 Noninfective gastroenteritis and colitis, unspecified (principal)
CPT/HCPCS: 88305; 45380; J2003; J2704

== ENCOUNTER → 2024-07-14 | Outpatient (CLI) | payer MEDICARE, BC ==
--- NOTE | 2024-07-14 14:57 | CTL ---
EXAMINATION TYPE: CT Low Dose Lung DATE OF EXAM ORDERED: 07/14/2024 COMPARISON: Prior study May 29, 2023 and older studies. CLINICAL INDICATION: Male, 68 years old with history of Z12.2 LUNG CA SCREEN F17.210 CURRENT SMOKER; [facility], lung CA screening, Lung cancer screening, History of Smoking/tobacco use. TECHNIQUE: Low dose computed tomography scan was performed through the chest at 1 mm thick sections a nd reconstructed images in multiple planes at 1 mm and [address] DLP: [address] CTDI: 1.8 mGy Automated exposure control for dose reduction was used. CT DIAGNOSTIC QUALITY: Satisfactory FINDINGS: FINDINGS: LUNG NODULES: Present, detailed below: Stable small scattered calcified nodules or benign granulomas are redemonstrated. No new greater than 6 mm noncalcified pulmonary nodules. LUNGS: COPD: Severity: Mild to Moderate Fibrosis: Severity: Mild biapical Lymph nodes: No greater than 1 cm noncalcified Other findings: Ascending aorta measures up to 3.8 cm in size. RIGHT PLEURAL SPACE: Effusion: None Calcification: None Thickening: None Pneumothorax: None LEFT PLEURAL SPACE: Effusion: None Calcification: None Thickening: None Pneumothorax: None HEART: Heart Size: Normal Coronary calcification: Probable stent proximal LAD redemonstrated. Pericardial effusion: None. OTHER FINDINGS: Upper abdomen: Cholecystectomy clips redemonstrated. Bony thorax: Mild to moderate multilevel spurring. Supraclavicular region: None. Other: None. IMPRESSION: No new or enlarging greater than [address] LUNG RAD AND CT CHEST RECOMMENDATION: Lung-Rad 2 Benign Appearance or Behavior: Continue annual sc reening with LDCT in 12 months. S Modifier (other clinically significant findings): None [facility], , 07/14/2024 2:55 PM
== END | disposition home or self-care (01) ==
LOC: RADCTMAIN 11:53
PROVIDERS: ATTEND Internal Medicine Critical Care Medicine
DX: Z12.2 Encounter for screening for malignant neoplasm of respiratory organs (principal); J44.9 Chronic obstructive pulmonary disease, unspecified; F17.210 Nicotine dependence, cigarettes, uncomplicated; Z90.49 Acquired absence of other specified parts of digestive tract
CPT/HCPCS: 71271

== ENCOUNTER → 2024-09-20 | Outpatient (CLI) | payer MEDICARE, BC | END | disposition home or self-care (01) | LOC: LABWHC1 14:14 | PROVIDERS: ATTEND Urology | DX: R97.20 Elevated prostate specific antigen [PSA] (principal) | CPT/HCPCS: 36415; 84153 ==

== ENCOUNTER → 2025-01-14 | Outpatient (CLI) | payer MEDICARE, BC ==
--- NOTE | 2025-01-15 14:30 | MR ---
EXAMINATION TYPE: MR Prostate wo/w con DATE OF EXAM: 01/14/2025 8:56 AM COMPARISON: None. CLINICAL INDICATION: Male, 69 years old with history of R97.20 ELEVATED PROSTATE SPECIFIC ANTIGEN [PS A]; Elevated PSA TECHNIQUE: Multi-planar, multi-sequence imaging of the pelvis is performed prior to and following the uncomplicated administration of bolus intravenous gadolinium. IV Contrast: 8 mL Gadobutrol Interpretive Criteria: PI-RADS v2.1 SERUM PSA: 08/2023=3.48, 09/2024=6.1, 10/2024=6.25 SURGICAL PATHOLOGY: No data available. FINDINGS: Prostatic dimensions: 5.2 x 5.9 x 5.1 cm. Ellipsoid Volume:81.93 (PSA density=0.08 ng/mL/mL) CENTRAL GLAND (Central and Transition Zones/CZ+TZ): Multiple bilateral, heterogenous appearing hypertrophic stromal nodules, without suspicious lesion. M edian lobe hypertrophy with protrusion into the base of the bladder. (PI-RADS 2) PERIPHERAL ZONE (PZ): Bilateral linear, indistinct wedgelike areas of low ADC, and low T2 signal, No evidence of masslike a bnormality, or localized perfusional hypervascularity, to further suggest a focus of clinically signi ficant prostate cancer. (PI-RADS 2) SEMINAL VESICLES (SV): Symmetric and unremarkable. PERIPROSTATIC TISSUES: Unremarkable. LYMPH NODES: No enlarged pelvic lymph node. REMAINING PELVIS: Bladder wall is within normal limits given distention. No abnormal free or organized intrapelvic fluid collection. No pathologic bowel dilation or mural thickening. No hernia visualized OSSEOUS STRUCTURES: No suspicious osseous abnormality. Lower spine susceptibility artifact from fixation hardware. IMPRESSION: 1. No specific features for high-risk prostate cancer. Maximum PI-RADS score: 2. 2. Moderate BPH, estimated gland volume 81.93 (PSA density=0.08 ng/mL/mL) 3. No suspicious osseous lesion. No lymphadenopathy. No evidence of prostate adenocarcinoma involving the periprostatic tissues. [facility], , 01/15/2025 2:27 PM
== END | disposition home or self-care (01) ==
LOC: RADMRIMAIN 07:55
PROVIDERS: ATTEND Urology
DX: N40.0 Benign prostatic hyperplasia without lower urinary tract symptoms (principal); R97.20 Elevated prostate specific antigen [PSA]
CPT/HCPCS: 72197; A9585